=== PATIENT | male | born 1975 | race Two or more races ===

== ENCOUNTER 2021-08-26 01:05 | Emergency (ER) | payer MEDICAID, OTHER ==
[~2021-08-26] VITALS: Ht 175.3 cm; Wt 83.9 kg
[2021-08-26 01:07] VITALS: BP 140/98
== END 2021-08-26 04:14 | disposition left against medical advice (07) ==
LOC: ER 01:07
DX: M25.512 Pain in left shoulder (principal); Z53.21 Procedure and treatment not carried out due to patient leaving prior to being seen by health care provider